=== PATIENT | male | born 1985 | race Caucasian/White ===

== ENCOUNTER 2020-09-01 09:22 | Outpatient (CLI) | payer BC ==
--- NOTE | 2020-09-01 09:55 | RAD ---
XR Shoulder Lt 3 View STANDARD HISTORY: Acute pain in the left shoulder FINDINGS: No fracture or dislocation is identified. There are mild degenerative changes in the acromial clavicu lar joint. Incidental note is made of old granulomatous disease in the visualized portions of the chest.
== END 2020-09-01 09:23 | disposition home or self-care (01) ==
LOC: SCSRAD 09:22
PROVIDERS: ATTEND Nurse Practitioner Family
DX: M25.512 Pain in left shoulder (principal)